=== PATIENT | female | born 1995 | race Caucasian/White ===

== ENCOUNTER 2020-07-03 13:22 | Emergency (ER) | payer OTHER ==
[2020-07-03 13:39] VITALS: BP 135/92
--- NOTE | 2020-07-03 13:48 | ED Physician Documentation ---
History of Present Illness - Stated complaint Stated Complaint: BODY ACHES - Chief complaint Chief Complaint: General - History obtained from History obtained from: Patient - Additonal information Additional information: She has a 7-month-old piercing, it started to hurt on the left yesterday and today some pus came out of the medial side of the bar. No fevers. Review of Systems Constitutional: denies: Fever, Chills Cardiac: denies: Chest pain / pressure, Palpitations Respiratory: denies: Dyspnea, Cough PD PAST MEDICAL HISTORY - Present Medications Home Medications: Ambulatory Orders Medication Instructions Recorded Confirmed Cephalexin [Keflex] 500 mg PO Q6H #28 capsule 07/03/20 - Allergies Allergies/Adverse Reactions: Allergies Allergy/AdvReac Type Severity Reaction Status Date / Time bacitracin Allergy Anaphylaxis Verified 07/03/20 13:40 [From Neosporin ([id number])] neomycin Allergy Anaphylaxis Verified 07/03/20 13:40 [From Neosporin ([id number])] polymyxin B Allergy Anaphylaxis Verified 07/03/20 13:40 [From Neosporin ([id number])] PD ED PE NORMAL - Vitals Vital signs reviewed: Yes - General General: Alert and oriented X 3, No acute distress - HEENT HEENT: PERRL, EOMI - Derm Derm: Other (She has a stainless steel bar type piercing of the left nipple, exam was done with Dorothy APPLE. There is mild swelling and redness along the medial side of it. No expressible pus.) - Neuro Neuro: Alert and oriented X 3, Normal speech Results - Vitals Vitals: Vital Signs - 24 hr 07/03/20 13:38 Temperature 36.5 C Heart Rate 101 H Respiratory 20 Rate Blood Pressure 135/92 H O2 Saturation 98 Oxygen O2 Source Room air Departure - Departure Disposition: Home, Self Care Clinical Impression: Infected piercing of trunk Condition: Good Record reviewed to determine appropriate education?: Yes Instructions: ED Wound Care Prescriptions: Cephalexin [Keflex] 500 mg PO Q6H #28 capsule Comments: Return for increasing pain, increasing swelling, increasing redness, fever or other new or worsening symptoms.
== END 2020-07-03 14:02 | disposition home or self-care (01) ==
LOC: ED 13:22
DX: L98.8 Other specified disorders of the skin and subcutaneous tissue (principal); Z43.8 Encounter for attention to other artificial openings
CPT/HCPCS: 99282; 99283

== ENCOUNTER 2021-04-07 08:00 | Outpatient (CLI) | payer OTHER ==
--- NOTE | 2021-04-07 15:47 | XRAY Report ---
PROCEDURE: Abdomen 2 View X-Ray INDICATIONS: ABDOMINAL PX TECHNIQUE: 1 view of the abdomen were acquired. COMPARISON: None FINDINGS: Surgical changes and devices: None. Bowel: No pneumoperitoneum. The bowel gas pattern is normal. Soft tissues: No masses; visualized solid organ contours appear normal in size. No suspicious abdom inal calcifications. Bones: No suspicious bony abnormalities. IMPRESSION: Unremarkable exam. Reviewed by: Lena Covington MD on 04/07/2021 3:45 PM PDT Approved by: Lena Covington MD on 04/07/2021 3:45 PM PDT Station ID: [id number]
== END 2021-04-07 23:59 | disposition home or self-care (01) ==
LOC: DI.N 08:00
PROVIDERS: ATTEND Physician Assistant Medical
DX: R10.9 Unspecified abdominal pain (principal)

== ENCOUNTER 2021-10-19 22:46 | Emergency (ER) | payer OTHER ==
[2021-10-19 23:13] LABS: BILIRUBIN,URINE NEGATIVE (NEGATIVE); GLUCOSE, URINE (UA) NEGATIVE (NEGATIVE); KETONES,URINE (UA) 40 mg/dL (NEGATIVE); LEUKOCYTE ESTERASE, URINE NEGATIVE (NEGATIVE); NITRITE,URINE NEGATIVE (NEGATIVE); OCCULT BLOOD,URINE NEGATIVE (NEGATIVE); PH,URINE 6.5 PH (5.0-7.5); PROTEIN,URINE NEGATIVE (NEGATIVE); UROBILINOGEN,URINE 0.2 (NORMAL) E.U./dL (NORMAL)
[2021-10-19 23:16] LABS: CLARITY,URINE CLEAR (CLEAR)
--- NOTE | 2021-10-19 23:28 | ED Physician Documentation ---
PD HPI ABD PAIN - Stated complaint Stated Complaint: ABD PX - Chief complaint Chief Complaint: Abd Pain - History obtained from History obtained from: Patient - History of Present Illness Timing - onset: Enter time (16:00), Today Timing - details: Gradual onset Pain level now: 3 Quality: Cramping Location: RUQ Radiation: Other (does not radiate) Improved by: Other (no ameliorating factors) Worsened by: Other (no exacerbating factors) Associated symptoms: Nausea, Vomiting. No: Fever Similar symptoms before: Has not had sx before Recently seen: Not recently seen - Additional information Additional information: c/o right upper quadrant cramping abominal pain, intermittent since 4 PM today, onset while at work undertaking light activity. Intermittent nausea/vomiting with pain. Patient is approximately 6 weeks , primagravida. Denies vaginal bleeding. Review of Systems Constitutional: reports: Reviewed and negative Cardiac: reports: Reviewed and negative Respiratory: reports: Reviewed and negative GI: reports: Abdominal Pain, Nausea, Vomiting. denies: Abdominal Swelling, Constipation, Diarrhea : reports: Now EGA (6 weeks). 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 : None HEENT: None Psych: None Musculoskeletal: None Derm: None - Past Surgical History Past Surgical History: Yes HEENT: Tonsil/Adenoidectomy - Allergies Allergies/Adverse Reactions: Allergies Allergy/AdvReac Type Severity Reaction Status Date / Time bacitracin Allergy Anaphylaxis Verified 10/19/21 23:01 [From Neosporin ([id number])] neomycin Allergy Anaphylaxis Verified 10/19/21 23:01 [From Neosporin (xis-rft-ekghi)] polymyxin B Allergy Anaphylaxis Verified 10/19/21 23:01 [From Neosporin ([id number]-oep-[id number])] - Social History Does the pt smoke?: No Smoking Status: Never smoker Does the pt drink ETOH?: No Does the pt have substance abuse?: No - Immunizations Immunizations are current?: Yes - POLST Patient has POLST: No PD ED PE NORMAL - Vitals Vital signs reviewed: Yes - General General: Alert and oriented X 3, No acute distress, Well developed/nourished - Cardiac Cardiac: RRR, No murmur - Respiratory Respiratory: No respiratory distress, Clear bilaterally - Abdomen Abdomen: Normal bowel sounds, Soft, Non tender, Non distended - Back Back: No CVA TTP - Derm Derm: Normal color, Warm and dry, No rash - Extremities Extremities: No edema Results - Vitals Vitals: Vital Signs - 24 hr 10/20/21 10/20/21 10/20/21 01:01 01:22 02:18 Temperature 37.3 C Heart Rate 66 71 82 Respiratory 15 14 14 Rate Blood Pressure 128/83 H 128/83 H 117/83 H O2 Saturation 100 99 99 Oxygen O2 Source Room air - Labs Labs: Laboratory Tests 10/19/21 10/19/21 10/19/21 23:00 23:40 23:40 WBC 11.4 H RBC 3.89 L Hgb 12.3 Hct 34.3 L MCV 88.2 MCH 31.6 H MCHC 35.9 RDW 11.8 L Plt Count 289 MPV 9.1 Neut # (Auto) 10.1 H Lymph # (Auto) 0.8 L [place] # (Auto) 0.5 Eos # (Auto) 0.0 Baso # (Auto) 0.0 Absolute Nucleated RBC 0.00 Nucleated RBC % 0.0 Sodium 132 L Potassium 3.6 Chloride 100 L Carbon Dioxide 23 Anion Gap 9.0 BUN 8 Creatinine 0.5 Estimated GFR (MDRD) 147 Glucose 107 H Calcium 9.2 Total Bilirubin 0.7 AST 14 ALT 14 Alkaline Phosphatase 36 L Total Protein 7.3 Albumin 4.3 Globulin 3.0 Albumin/Globulin Ratio 1.4 Lipase 25 Urine Color YELLOW Urine Clarity CLEAR Urine pH 6.5 Ur Specific [place] 1.010 Urine Protein NEGATIVE Urine Glucose (UA) NEGATIVE Urine Ketones 40 H Urine Occult Blood NEGATIVE Urine Nitrite NEGATIVE Urine Bilirubin NEGATIVE Urine Urobilinogen 0.2 (NORMAL) Ur Leukocyte Esterase NEGATIVE Ur Microscopic Review NOT INDICATED Urine Culture Comments NOT INDICATED - Rads (name of study) RUQ US Radiology: Prelim report reviewed, See rad report PD MEDICAL DECISION MAKING - ED course Complexity details: reviewed results, re-evaluated patient, considered differ ential, d/w patient ED course: c/o episodic RUQ pain in setting of (approximately 6 weeks). reassuring blood test results (minimal leukocytosis) and unremarkable RUQ US (mild hepatosteatosis). Results d/w patient. No cause for symptoms at this time, encouraged to follow up with primary care provider, return if worse Departure - Departure Disposition: 01 Home, Self Care Clinical Impression: Abdominal pain Qualifiers: Abdominal location: right upper quadrant Qualified Code(s): R10.11 - Right upper quadrant pain Condition: Good Instructions: ED Abdominal Pain Female Non-Specific Abdominal Pain Follow-Up: LISANDRO BISHOP DO [Primary Care Provider] - Comments: The cause of your pain is not apparent at this time. There are no remarkable or concerning findings on your blood tests, urinalysis, or ultrasound. Further testing might be necessary, particularly if your symptoms persist or are recurrent, but further testing is not indicated at this time from an emergency standpoint. If your symptoms worsen or if you develop new/concerning signs / symptoms (such as fever, vomiting blood, pelvic pain, vaginal bleeding), return to the emergency department for reevaluation. Otherwise, follow up with your primary care provider for reevaluation. Discharge Date/Time: 10/20/21 02:24
[2021-10-20 00:01] LABS: BASOPHILS % (AUTO) 0.2 %; EOSINOPHILS % (AUTO) 0.1 %; HCT - HEMATOCRIT 34.3 % (37.0-47.0); HGB - HEMOGLOBIN 12.3 g/dL (12.0-16.0); LYMPHOCYTES # (AUTO) 0.8 10^3/uL (1.5-3.5); LYMPHOCYTES % (AUTO) 6.9 %; MEAN CORPUSCULAR HEMOGLOBIN 31.6 pg (27.0-31.0); MEAN CORPUSCULAR HGB CONC 35.9 g/dL (32.0-36.0); MEAN CORPUSCULAR VOLUME 88.2 fL (81.0-99.0); MEAN PLATELET VOLUME 9.1 fL (7.9-10.8); MONOCYTES # (AUTO) 0.5 10^3/uL (0.0-1.0); MONOCYTES % (AUTO) 4.3 %; NEUTROPHILS # (AUTO) 10.1 10^3/uL (1.5-6.6); NEUTROPHILS % (AUTO) 88.2 %; PLT - PLATELET COUNT 289 10^3/uL (130-450); RED BLOOD COUNT 3.89 10^6/uL (4.20-5.40); RED CELL DISTRIBUTION WIDTH 11.8 % (12.0-15.0); WHITE BLOOD COUNT 11.4 x10^3/uL (4.8-10.8)
[2021-10-20 00:02] LABS: ALBUMIN 4.3 g/dL (3.2-5.5); ALBUMIN/GLOBULIN RATIO 1.4 (1.0-2.2); BILIRUBIN,TOTAL 0.7 mg/dL (0.2-1.0); CALCIUM 9.2 mg/dL (8.5-10.3); CREATININE 0.5 mg/dL (0.4-1.0); POTASSIUM 3.6 mmol/L (3.5-5.0); TOTAL PROTEIN 7.3 g/dL (6.7-8.2)
--- NOTE | 2021-10-20 01:40 | Ultrasound Report ---
PROCEDURE: Abdomen Limited INDICATIONS: RUQ/epigastric pain TECHNIQUE: Real-time focused scanning was performed of the abdomen, with image documentation. COMPARISON: None. FINDINGS: The liver appears slightly hyperechoic suggestive of mild fatty infiltration. No gallstones, no bladder wall thickening, or pericholecystic fluid. No sonographic Nelson's sign rep orted. No intra or extra hepatic biliary ductal dilatation. The visualized common bile duct measures up to 0 .3 cm. The pancreas appears unremarkable sonographically. Right kidney measures up to 10.7 cm in length. No hydronephrosis. The intrahepatic inferior vena cava appears patent. IMPRESSION: 1. No evidence of cholelithiasis or cholecystitis. Reviewed by: Herbert Alegre MD on 10/20/2021 1:39 AM PDT Approved by: Herbert Alegre MD on 10/20/2021 1:39 AM PDT Station ID: [id number]
[2021-10-20 02:20] VITALS: BP 117/83
== END 2021-10-20 02:24 | disposition home or self-care (01) ==
LOC: ED 22:46
DX: O99.891 Other specified diseases and conditions complicating pregnancy (principal); R10.11 Right upper quadrant pain; Z3A.01 Less than 8 weeks gestation of pregnancy
CPT/HCPCS: 36415; 80053; 81001; 81003; 83690; 85025; 87086; 99282; 99284

== ENCOUNTER 2023-05-09 21:18 | Emergency (ER) | payer OTHER ==
[2023-05-09 21:45] VITALS: O2SAT 98
--- NOTE | 2023-05-10 02:54 | ED Physician Documentation ---
PD HPI OPHTHO - Stated complaint Stated Complaint: ALLERGIC REACTION - Chief complaint Chief Complaint: Allergic Rx - History obtained from History obtained from: Patient - Additional information Additional information: HPI from patient. Patient was poked in her right eye by her daughter earlier today, causing right eye pain and redness. She was evaluated in a clinic and was prescribed erythromycin ointment; patient says this was for corneal abrasion although she does not describe fluorescein / wood's lamp exam. With her first application of the antibiotic ointment, she had soothing relief of the discomfort, but over the next few hours has had gradually increasing right eye (periorbital) swelling, redness, and itchiness of the eye. While awaiting evaluation in ED , these symptoms have all improved. She denies visual change/blurry vision. Patient does not wear corrective lenses Review of Systems Eyes: reports: Irritation. 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 : None HEENT: None Psych: None Musculoskeletal: None Derm: None - Past Surgical History Past Surgical History: Yes HEENT: Tonsil/Adenoidectomy - Present Medications Home Medications: Ambulatory Orders Medication Instructions Recorded Confirmed Ciprofloxacin HCl [Ciloxan] 1 film OP BID 7 Days #3.5 gm 05/10/23 Pnv No.95/Ferrous Fum/Folic AC 1 each PO DAILY 05/10/23 05/10/23 [ Tablet] - Allergies Allergies/Adverse Reactions: Allergies Allergy/AdvReac Type Severity Reaction Status Date / Time bacitracin Allergy Anaphylaxis Verified 05/09/23 21:30 [From Neosporin ([id number])] neomycin Allergy Anaphylaxis Verified 05/09/23 21:30 [From Neosporin ([id number])] polymyxin B Allergy Anaphylaxis Verified 05/09/23 21:30 [From Neosporin (cew-bob-[id number])] - Social History Does the pt smoke?: No Smoking Status: Never smoker Does the pt drink ETOH?: No Does the pt have substance abuse?: No - Immunizations Immunizations are current?: Yes - POLST Patient has POLST: No PD ED PE NORMAL - Vitals Vital signs reviewed: Yes - General General: Alert and oriented X 3, No acute distress, Well developed/nourished - HEENT HEENT: PERRL, EOMI PD ED PE EXPANDED - Eyes Eyes: Normal eyelids, Injected conj/sclera (mild right eye conjunctival injection). No: Eyelid erythema, Subconj hemorrhage, Fluorescein uptake Results - Vitals Vitals: Oxygen O2 Source Room air PD Medical Decision Making - ED course Complexity details: considered differential, d/w patient ED course: Normal exam aside from mild right eye conjunctival injection. No fluorescein uptake under magnified wood's lamp exam (right eye). I am e-prescribing ciprodex drops for the conjunctival injection, although this is likely due to the injury (poked in the eye). Patient says she will likely hold off on more abx drops , which is reasonable given no corneal abrasion on my exam. Departure - Departure Disposition: 01 Home, Self Care Clinical Impression: Conjunctivitis Qualifiers: Conjunctivitis type: acute Acute conjunctivitis type: unspecified Laterality: right Qualified Code(s): H10.31 - Unspecified acute conjunctivitis, right eye Condition: Good Instructions: ED Conjunctivitis Nonspecific Prescriptions: Ciprofloxacin HCl [Ciloxan] 1 film OP BID 7 Days #3.5 gm Comments: On my exam, I do not find evidence of a corneal abrasion. The eye discomfort and redness certainly could be from the injury that you sustained yesterday. Typically, an antibiotic is prescribed for corneal abrasions to help prevent infection; antibiotics are also sometimes prescribed for conjunctivitis. Seeing how the antibiotics that you had applied last night seem to worsen your symptoms, but they are improving since then and there is no evidence of cord abrasion, holding off on further antibiotics is reasonable. As we discussed, I am electronically submitting a prescription for a different antibiotic ointment (cipro) to the [facility] pharmacy in [place]. If your symptoms worsen in any way (such as worsening swelling, redness, visual changes such as blurriness, or eye discomfort/pain), please fill that prescription and use the antibiotic drops as per the prescription label. Forms: PCP List Discharge Date/Time: 05/10/23 03:28
[2023-05-10 03:28] VITALS: BP 125/94
== END 2023-05-10 03:28 | disposition home or self-care (01) ==
LOC: ED 21:18
DX: H10.31 Unspecified acute conjunctivitis, right eye (principal)
CPT/HCPCS: 99282; 99283